=== PATIENT | female | born 1975 | race Two or more races ===

== ENCOUNTER 2017-11-11 11:26 | Emergency (ER) | payer SELFPAY ==
[2017-11-11 12:03] LABS: URINE HCG POC HCG NEGATIVE (Negative)
[2017-11-11 12:12] LABS: BILIRUBIN,URINE NEGATIVE (NEG); CLARITY,URINE CLEAR; COLOR,URINE YELLOW; GLUCOSE,URINE NEGATIVE (NEG); NITRITE,URINE NEGATIVE (NEG); PROTEIN,URINE NEGATIVE (NEG-TRACE); UROBILINOGEN,URINE 0.2 mg/dL (0.2 mg/dL)
[2017-11-11] MEDS: IBUPROFEN 800 MG TABLET. PO (12:26)
[2017-11-11] MEDS: oxyCODONE/APAP 5/325 1 TAB TABLET PO (12:26)
[2017-11-11 12:28] LABS: BACTERIA,URINE 0 /HPF (0-FEW); RBC,URINE OCC /HPF (0-2); SQUAMOUS EPITHELIAL CELL,UR MOD /LPF; WBC,URINE OCC /HPF (0-4)
== END 2017-11-11 12:41 | disposition home or self-care (01) ==
LOC: ER 11:26
DX: S39.012A Strain of muscle, fascia and tendon of lower back, initial encounter (principal); E05.90 Thyrotoxicosis, unspecified without thyrotoxic crisis or storm; X58.XXXA Exposure to other specified factors, initial encounter; Y93.89 Activity, other specified; Y92.89 Other specified places as the place of occurrence of the external cause; Y99.8 Other external cause status
CPT/HCPCS: 72100; 81001; 81025; 99285

== ENCOUNTER 2019-09-21 09:51 | Emergency (ER) | payer SELFPAY ==
[~2019-09-21 09:51] MED LIST: HYDR-3164 PO; IBUP200T77 PO; NAPR250T6 PO; PRED-220 PO
[2019-09-21 11:40] VITALS: BP 146/92
--- NOTE | 2019-09-21 12:15 | PHYS DOC ---
Past Medical History Past Medical History: Hyperthyroid Past Surgical History: Alcohol Use: None Drug Use: None Adult General Chief Complaint Chief Complaint: COUGH HPI HPI Patient is a 44 year old female who presents with cough this been ongoing for 3 weeks. The patient states she's had a fever 3 days ago. The patient is afebrile on arrival to the ER. Patient denies any other symptoms. Complete ROS were reviewed and found to be within normal limits, except as documented in the HPI Allergies Allergies Allergies Coded Allergies Type Severity Reaction Last Updated Verified No Known Drug Allergies 09/19/13 No Physical Exam Physical Exam Constitutional: Well developed, well nourished, no acute distress, non-toxic appearance. [] HENT: Normocephalic, atraumatic, bilateral external ears normal, oropharynx moist, no oral exudates, nose normal. [] Eyes: PERRLA, EOMI, conjunctiva normal, no discharge. [] Neck: Normal range of motion, no tenderness, supple, no stridor. [] Cardiovascular:Heart rate regular rhythm, no murmur [] Lungs & Thorax: Bilateral breath sounds clear to auscultation [] Skin: Warm, dry, no erythema, no rash. [] Neurologic: Alert and oriented X 3, normal motor function, normal sensory function, no focal deficits noted. [] Psychologic: Affect normal, judgement normal, mood normal. [] Current Patient Data Vital Signs Vital Signs Date Time Temp Pulse Resp B/P (MAP) Pulse Ox O2 Delivery O2 Flow Rate FiO2 09/21/19 11:40 98.3 83 18 146/92 (110) 96 Room Air 98.3 EKG EKG [] Radiology/Procedures Radiology/Procedures [][facility] [address] [place] [address] IMAGING REPORT Signed PATIENT: VINICIO WILLSON LACCOUNT: [id number] : 1975 LOCATION: ER AGE: 44 SEX: F EXAM STATUS: REG ER ORD. PHYSICIAN: YURI LOPEZ APRN REASON: cough, fever PROCEDURE: CHEST PA & LATERAL EXAM: Chest, 2 views. HISTORY: Cough. Fever. COMPARISON: None. FINDINGS: 2 views of the chest are obtained. There is mild increased central interstitial opacity. There is no consolidation, pleural effusion or pneumothorax. The heart is normal in size. IMPRESSION: Mild central increased interstitial opacity due to slight decreased lung volumes or interstitial infiltrate. No consolidation is seen. Electronically signed by: Lynnette Gonzalez MD (09/21/2019 12:51 PM) [facility] DICTATED and SIGNED BY: LYNNETTE GONZALEZ MD DATE: 09/21/19 1251 Course & Med Decision Making Course & Med Decision Making Pertinent Labs and Imaging studies reviewed. (See chart for details) Discussed with patient that she needs to have an x-ray performed. Will do an x- ray in ER if she chooses to stay. Vitals are stable. X-ray shows interstitial infiltrate. Will place on Doxycycline. Dragon Disclaimer Dragon Disclaimer This electronic medical record was generated, in whole or in part, using a voice recognition dictation system. Departure Departure Impression: Primary Impression: Cough Additional Impression: Pneumonia Disposition: HOME, SELF-CARE Condition: STABLE Referrals: NO PCP (PCP) Patient Instructions: Cough, Adult Additional Instructions: Thank you for visiting [facility]. We appreciate you trusting us with your care. If any additional problems come up don't hesitate to return to visit us. Please follow up with your primary care provider so they can plan additional care if needed and know about the problem that you had. If symptoms worsen come back to the Emergency Department. Any concerning symptoms that start such as chest pain, shortness of air, weakness or numbness on one side of the body, running high fevers or any other concerning symptoms return to the ER. Scripts Doxycycline Hyclate (DOXYCYCLINE HYCLATE) 100 Mg Capsule 1 CAP PO BID for 10 Days, #20 CAP Prov: YURI LOPEZ APRN 09/21/19 Problem Qualifiers Additional Impression: Pneumonia Pneumonia type: due to unspecified organism Laterality: right Lung location: middle lobe of lung Qualified Codes: J18.9 - Pneumonia, unspecified organism YURI LOPEZ APRN Sep 21, 2019 12:15
--- NOTE | 2019-09-21 12:54 | RAD ---
EXAM: Chest, 2 views. HISTORY: Cough. Fever. COMPARISON: None. FINDINGS: 2 views of the chest are obtained. There is mild increased central interstitial opacity. There is no consolidation, pleural effusion or pneumothorax. The heart is normal in size. IMPRESSION: Mild central increased interstitial opacity due to slight decreased lung volumes or interstitial infiltrate. No consolidation is seen. Electronically signed by: Lynnette Correa MD (09/21/2019 12:51 PM) [place] [id number]
[2019-09-21] MEDS ORDERED: DOXY100C2 PO (13:02)
== END 2019-09-21 13:10 | disposition home or self-care (01) ==
LOC: ER 09:51
DX: J18.9 Pneumonia, unspecified organism (principal); R05 Cough; E05.90 Thyrotoxicosis, unspecified without thyrotoxic crisis or storm; Z98.890 Other specified postprocedural states
CPT/HCPCS: 71046; 99284